=== PATIENT | female | born 1965 | race Caucasian/White ===

== ENCOUNTER 2018-09-11 20:14 | Emergency (ER) | payer MEDICARE ==
[2018-09-11] MEDS ORDERED: Ketorolac 30 MG/ML SDV IVPUSH ONE (20:30)
--- NOTE | 2018-09-11 20:37 | EDM.PDOC ---
ED HPI GENERAL MEDICAL PROBLEM - General Chief Complaint: Lower Extremity Injury/Pain Stated Complaint: PT HURT LT KNEE Time Seen by Provider: 09/11/18 20:22 - History of Present Illness INITIAL COMMENTS - FREE TEXT/NARRATIVE: HISTORY AND PHYSICAL: History of present illness: The patient is a healthy 53-year-old female who presents via EMS after falling at the [employer] train station this evening. According to the patient she was having a completely normal day and was on her way home from an [facility] cruise and she was at the train station getting onto the train and as she was stepping off of the platform onto the train the train moved causing her to lose her footing and she landed on her left knee and hit the left side of her face. The patient did not pass out or black out and she had her glasses on and she had some pain and bruising underneath her left eye but she is most concerned about significant pain and swelling at her left knee. She had no neck or back complaints on seen and had no chest pain shortness of breath abdominal pain hip pain or other extremity complaints. She received fentanyl per EMS in route. She denies any numbness or weakness in her foot and ankle on the left side but will not move her left knee secondary to the discomfort. She does not feel confused nor does she have any visual changes headache or any facial pain. The patient does not take any anticoagulation therapy Please add to the note that this incident did not occur at our [facility] but did occur at her previous station and the patient decided to remain on the train until she arrived here for medical treatment. Review of systems: As per history of present illness and below otherwise all systems reviewed and negative. Past medical history: As per history of present illness and as reviewed below otherwise noncontributory. Surgical history: As per history of present illness and as reviewed below otherwise noncontributory. Social history: No reported history of drug or alcohol abuse. Family history: As per history of present illness and as reviewed below otherwise noncontributory. Physical exam: General: Well-developed well-nourished mildly overweight female who is nontoxic and vital signs are noted by me. During the course of my exam the patient exhibited some discomfort with palpation of her entire soft tissue cervical spine so a collar was placed. HEENT: Atraumatic with the exception of a very small area of bruising seen at the left infraorbital area without palpable bony defect and no tenderness in this region, there are no other bony facial abnormalities defects deformities or tenderness and no other soft tissue swellings, EOMs are intact, normocephalic , pupils reactive, negative for conjunctival pallor or scleral icterus, mucous membranes moist, throat clear, neck supple, nontender, trachea midline. Teeth and bite are normal, there is no nasal bleeding. There are no midline step-offs tenderness or defects of the cervical spine but there is diffuse paraspinal tenderness with palpation so a collar was placed. Lungs: Clear to auscultation, breath sounds equal bilaterally, chest nontender. Heart: S1S2, regular rate and rhythm no overt murmurs, negative for clicks, rubs , or JVD. Abdomen: Soft, nondistended, nontender. Negative for masses or hepatosplenomegaly. NABS Pelvis: Stable nontender. No lateral hip tenderness Genitourinary: Deferred. Rectal: Deferred. Extremities: She has full range of motion and no trauma appreciated on all extremities with the exception of the left leg. There is a small circular ecchymosis seen at the proximal without bony tenderness defects or deformities and the patient says she was unaware of this nor is it very tender with palpation. There is some old healing circular areas of ecchymosis seen on the right lower extremity but there is no new trauma seen tenderness defects or deformities. At the left knee there is diffuse soft tissue swelling ecchymosis and tenderness but the alignment appears to be intact. There is tenderness in the proximal tibia and fibula and less distally and there is no proximal femur tenderness on the left or hip tenderness and no discrete left ankle tenderness or foot/toe tenderness defects or deformities. Capillary refill is normal and pulses are palpable. The patient can move her foot and ankle. Splint was on the patient on arrival and was changed over to a cardboard splint. There is a oval superficial abrasion seen on the patellar area of this knee which does not have any significant depth and there are no lacerations.. Neurovascular unremarkable. Neuro: Awake, alert, oriented. Cranial nerves II through XII unremarkable. Cerebellum unremarkable. Motor and sensory unremarkable throughout. Exam nonfocal. Back: There are no midline step-offs tenderness defects the thoracic or lumbar spine and no posterior rib tenderness Diagnostics: X-ray of C-spine left knee and left femur and left tib-fib Patient was offered x-ray of right elbow and facial bones and declines Therapeutics: Fentanyl 100 g per EMS in route, Toradol IM cleansing and dressing to left knee abrasion, prashanth knee immobilizer and crutches Nursing has informed me that the patient has removed her own c-collar as she feels very anxious with his on and has a history of anxiety. She is aware of our concerns and accepts those. Patient has requested to take her evening medications here in the ED with a sip of water. She was supposed to take these at 4 PM and due to the event she did not take them. I told nursing to allow her to do this with a sip of water. One of those medications includes a hydrocodone/acetaminophen 10 mg. She and family at bedside are aware we are currently awaiting the x-ray formal readings. She is aware that there are no acute fractures and we will give her a disc of her x-rays to bring home as she does not plan to follow up here. We will give her an Prashanth immobilizer and crutches and she says that she has run out of her Ninole sling will give her [facility]s for this. She has been advised on symptomatic care. Impression: Fall, knee contusion significant soft tissue swelling, facial contusions Definitive disposition and diagnosis as appropriate pending reevaluation and review of above. Treatments TECHNICAL OPERATIONS SPECIALIST: Reports: Splint(s), Other (see below) Other Treatments TECHNICAL OPERATIONS SPECIALIST: Fentanyl left knee Pain Score (Numeric/FACES): 8 - Related Data Allergies Allergy/AdvReac Type Severity Reaction Status Date / Time No Known Allergies Allergy Verified 09/11/18 20:20 Home Meds: Home Meds Amitriptyline [Elavil] 100 mg PO 09/11/18 [History] Cholecalciferol (Vitamin D3) [Vitamin D] 1.25 mg PO 09/11/18 [History] Gabapentin [Neurontin] 800 mg PO QID 09/11/18 [History] Hydrocodone/Acetaminophen [Hydrocodon-Acetaminophen 5-325] 10 mg PO QID [History] Levothyroxine Sodium [Levoxyl] 25 mcg PO DAILY 09/11/18 [History] Pantoprazole Sodium [Protonix] 40 mg PO DAILY 09/11/18 [History] Promethazine [Phenergan] 25 mg PO PRN 09/11/18 [History] Propranolol [Inderal] 10 mg PO BID 09/11/18 [History] SUMAtriptan Succinate [Imitrex] 100 mg PO PRN 09/11/18 [History] busPIRone HCl [busPIRone] 30 mg PO QID 09/11/18 [History] tiZANidine HCl [Tizanidine HCl] 6 mg PO TID 09/11/18 [History] Review of Systems - Review of Systems Review Of Systems: ROS reveals no pertinent complaints other than HPI. ED EXAM, GENERAL - Physical Exam Exam: See Below (see Dictation) Course - Vital Signs Last Recorded V/S: Last Vital Signs Temp 36.1 C 09/11/18 20:21 Pulse 112 H 09/11/18 22:05 Resp 18 09/11/18 22:05 BP 148/75 H 09/11/18 22:05 Pulse Ox 95 09/11/18 22:05 - Orders/Labs/Meds Orders: Active Orders 24 hr Category Date Time Status DME for Discharge [COMM] Stat Oth 09/11/18 22:36 Ordered Meds: Medications Discontinued Medications Generic Name Dose Route Start Last Admin Trade Name Freq PRN Reason Stop Dose Admin Ketorolac Tromethamine 30 mg 09/11/18 20:30 09/11/18 20:39 Toradol IVPUSH 09/11/18 20:31 Not Given ONETIME ONE Ketorolac Tromethamine 60 mg 09/11/18 20:39 09/11/18 20:49 Toradol IM 09/11/18 20:40 60 mg ONETIME ONE Administration Departure - Departure Time of Disposition: 22:38 Disposition: Home, Self-Care 01 Condition: Good Clinical Impression: Fall Qualifiers: Encounter type: initial encounter Qualified Code(s): W19.XXXA - Unspecified fall, initial encounter Facial contusion Qualifiers: Encounter type: initial encounter Qualified Code(s): S00.83XA - Contusion of other part of head, initial encounter Neck sprain Qualifiers: Encounter type: initial encounter Qualified Code(s): S13.9XXA - Sprain of joints and ligaments of unspecified parts of neck, initial encounter Contusion of knee, left Qualifiers: Encounter type: initial encounter Qualified Code(s): S80.02XA - Contusion of left knee, initial encounter - Discharge Information Referrals: PCP,None [Primary Care Provider] - Forms: ED Department Discharge Additional Instructions: The following information is given to patients seen in the emergency department who are being discharged to home. This information is to outline your options for follow-up care. We provide all patients seen in our emergency department with a follow-up referral. The need for follow-up, as well as the timing and circumstances, are variable depending upon the specifics of your emergency department visit. If you don't have a primary care physician on staff, we will provide you with a referral. We always advise you to contact your personal physician following an emergency department visit to inform them of the circumstance of the visit and for follow-up with them and/or the need for any referrals to a consulting specialist. The emergency department will also refer you to a specialist when appropriate. This referral assures that you have the opportunity for followup care with a specialist. All of these measure are taken in an effort to provide you with optimal care, which includes your followup. Under all circumstances we always encourage you to contact your private physician who remains a resource for coordinating your care. When calling for followup care, please make the office aware that this follow-up is from your recent emergency room visit. If for any reason you are refused follow-up, please contact the [facility] emergency department at and ask to speak to the emergency department charge nurse. [facility] Primary care- Internal Medicine and Family [address] [address] As you are going to be going home in the next 24 hours please follow-up with your provider and/or an orthopedic specialists for follow-up care. Ice and elevate the knee as much as possible and expect the swelling to slowly improve. Swelling may go down to her ankle and foot due to gravity. Use Prashanth at all times but remove at sleep times and wear her immobilizer at all times using crutches and do not weight-bear until you're followed up. Use [id number] Aleve/ ibuprofen/Motrin for inflammation pain and at the Ninole you have been given from [facility]. Return to ER as needed and as discussed - My Orders Last 24 Hours: My Active Orders 09/11/18 22:36 DME for Discharge [COMM] Stat - Assessment/Plan Last 24 Hours: My Active Orders 09/11/18 22:36 DME for Discharge [COMM] Stat
[2018-09-11] MEDS ORDERED: Ketorolac 60 MG/2 ML SDV IM ONE (20:39)
--- NOTE | 2018-09-11 22:17 | CR ---
INDICATION: Pain after fall COMPARISON: None available. FINDINGS: The cervical spine was examined with AP, lateral, open mouth, and swimmers views for a total of four views. The cervical vertebral bodies and disc spaces are normal in height. The vertebral bodies are in anatomic alignment with no sign of fracture or subluxation. The prevertebral soft tissues are normal in appearance with no sign of swelling. The airway structures are normal in appearance. IMPRESSION: Normal cervical spine four views. Dictated by Rodrigo Ochoa MD @ Sep 11 2018 10:13PM Signed by Dr. Rodrigo Ochoa @ Sep 11 2018 10:15PM
--- NOTE | 2018-09-11 22:19 | CR ---
INDICATION: Pain after fall COMPARISON: None available. FINDINGS: A single AP view of the left femur was obtained. There is no sign of fracture, dislocation, or joint effusion. The soft tissues are normal in appearance without sign of radio-opaque foreign body. No significant degenerative disease is seen in the visualized portions of the hip and knee. IMPRESSION: Normal single AP view of the left femur. Dictated by Rodrigo Ochoa MD @ Sep 11 2018 10:15PM Signed by Dr. Rodrigo Ochoa @ Sep 11 2018 10:17PM
--- NOTE | 2018-09-11 22:25 | CR ---
INDICATION: Tibia injury from trauma, fall TECHNIQUE: Tibia-fibula radiograph 2 views left COMPARISON: None FINDINGS: Bone: No acute fractures or aggressive bone lesions are identified. The lateral view does not include the proximal tibia and fibula but these are well visualized on the accompanying radiographs of the knee. Joint: The visualized knee and ankle joints are unremarkable. No significant joint effusion is seen. Soft tissue: Moderate subcutaneous edema is present along the lateral calf. No radiopaque foreign bodies are seen. Overlying fabric artifacts moderately limits the evaluation of the soft tissues. IMPRESSION: 1. No acute osseous injuries or abnormalities are noted. Dictated by Donnell Wood MD @ 09/11/2018 10:23:50 PM Dictated by: Donnell Wood MD @ 09/11/2018 22:23:54 (Electronically Signed)
--- NOTE | 2018-09-11 22:27 | CR ---
Indication: Fall Technique: Three views left knee Comparison: None Findings: Bones: Alignment is normal. No fractures or bone lesions. Joint spaces: Mild tricompartmental degenerative changes. Soft tissues: Soft tissue swelling overlying the anterior knee. Impression: Soft tissue swelling overlying the anterior knee. No acute fracture or subluxation Dictated by Sally Nelson MD @ Sep 11 2018 10:25PM Signed by Dr. Sally Nelson @ Sep 11 2018 10:25PM
== END 2018-09-11 23:00 | disposition home or self-care (01) ==
LOC: MW.ED 20:14
DX: S13.9XXA Sprain of joints and ligaments of unspecified parts of neck, initial encounter (principal); S80.02XA Contusion of left knee, initial encounter; S00.83XA Contusion of other part of head, initial encounter; I10 Essential (primary) hypertension; Z79.899 Other long term (current) drug therapy; W18.39XA Other fall on same level, initial encounter; Y92.815 Train as the place of occurrence of the external cause
CPT/HCPCS: 72040; 73551; 73562; 73590; 96372; 99284; J1885